=== PATIENT | female | born 1960 | race Caucasian/White ===

== ENCOUNTER 2016-12-28 15:20 | Emergency (ER) | payer OTHER ==
[2016-12-28 15:26] VITALS: BP 151/67; PULSE 65; RESP 18; TEMP 98.5; O2SAT 98
--- NOTE | 2016-12-28 15:49 | C.PDOC ---
History Of Present Illness 56 yo female c/o itching and rash since yesterday. Pt notes she took benadryl last night but symptoms persisted.Notes h/o similar rash last month which was relieved by steroid shot. 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 NO sob , no difficulty breathing. No new food or medication. Time Seen by Provider: 12/28/16 15:36 Chief Complaint (Nursing): Abnormal Skin Integrity History Per: Patient History/Exam Limitations: no limitations Onset/Duration Of Symptoms: Hrs Past Medical History Vital Signs: Last Vital Signs Temp 98.5 F 12/28/16 15:24 Pulse 65 12/28/16 15:24 Resp 18 12/28/16 15:24 BP 151/67 H 12/28/16 15:24 Pulse Ox 98 12/28/16 15:52 Family History: States: Unknown Family Hx - Social History Hx Alcohol Use: No Hx Substance Use: No Review Of Systems Except As Marked, All Systems Reviewed And Found Negative. Constitutional: Negative for: Fever ENT: Negative for: Throat Swelling Cardiovascular: Negative for: Chest Pain Respiratory: Negative for: Cough, Shortness of Breath Skin: Positive for: Rash Physical Exam - Physical Exam Appears: Well, Non-toxic, No Acute Distress Skin: Warm, Dry, Rash ((+) mild erythema to the neck and face- rash follows the neck collar of the shirt) Head: Atraumatic, Normacephalic Eye(s): bilateral: PERRL, EOMI, Eyelid Inflammation (mild upper eyelid inflammation) Ear(s): Bilateral: Normal Nose: Normal Oral Mucosa: Moist Tongue: No Swelling Lips: Swelling (mild upper lip) Throat: Normal, No Erythema, No Exudate, No Drooling Neck: Normal, Normal ROM, Supple Chest: Symmetrical Cardiovascular: Rhythm Regular Respiratory: Normal Breath Sounds Gastrointestinal/Abdominal: Normal Exam Back: Normal Inspection Extremity: Normal ROM Neurological/Psych: Oriented x3, Normal Speech, Normal Cognition ED Course And Treatment O2 Sat by Pulse Oximetry: 98 Progress Note: Benadryl and prednisone ordered. On re-evaluation, Patient is resting comfortably, tolerating PO, has no shortness of breath, has no intra- oral swelling, no stridor. Patient notes that pruritus has improved.. Patient was advised to avoid potential allergens, and to follow up with physician in 1- 2 days. Disposition - Disposition Disposition: HOME/ ROUTINE Disposition Time: 15:45 Condition: STABLE Additional Instructions: Avoid potential allergens. Follow up with medical professionals/dermatology in 1-2 days. Return to ER if symptoms persist or worsen. Prescriptions: DiphenhydrAMINE [Benadryl] 25 mg PO Q6 #20 cap predniSONE [Prednisone] 40 mg PO DAILY #8 tab Instructions: Contact Dermatitis (ED) Forms: [facility] (Slovenian), Work Excuse - Clinical Impression Clinical Impression: Allergic contact dermatitis
[2016-12-28] MEDS ORDERED: MethylPREDNISolone 40 mg Vial ONE (15:57)
== END 2016-12-28 16:09 | disposition home or self-care (01) ==
LOC: C.ER 15:20
DX: L23.9 Allergic contact dermatitis, unspecified cause (principal)
CPT/HCPCS: 96372; 99283; J2930